=== PATIENT | male | born 1995 | race Two or more races ===

== ENCOUNTER → 2024-09-18 | Outpatient (CLI) | payer OTHER, SELFPAY ==
--- NOTE | 2024-09-18 | XR_ITS ---
Examination: Right elbow 3 views Technique: Elbow AP, oblique, lateral 3 views Exam date and time: September 18, 2024 1144 hours INDICATIONS: Patient fell 2 days ago with injury to the elbow, elbow pain. FINDINGS: No fracture or dislocation No elbow effusion IMPRESSION: Negative study.
--- NOTE | 2024-09-18 | XR_ITS ---
Examination: Shoulder,right, 3 views Technique: Shoulder AP internal rotation, AP external rotation, Y view shoulder, 3 views Exam date and time :September 18, 2024 1144 hours INDICATIONS: Patient fell 2 days ago with into the shoulder, shoulder pain. FINDINGS: 3 mm AC joint offset, age indeterminate No shoulder fracture or dislocation IMPRESSION: 3 mm AC joint offset, age indeterminate, clinical correlation advised
== END | disposition home or self-care (01) ==
PROVIDERS: PCP Family Medicine; Referring Provider Physician Assistant; Visit Provider Physician Assistant
DX: S59.901A Unspecified injury of right elbow, initial encounter (principal); S49.91XA Unspecified injury of right shoulder and upper arm, initial encounter; W19.XXXA Unspecified fall, initial encounter
CPT/HCPCS: 73030; 73080